=== PATIENT | female | born 1975 | race Caucasian/White ===

== ENCOUNTER 2017-01-12 17:03 | Emergency (ER) | payer OTHER ==
[~2017-01-12] VITALS: Ht 162.6 cm; Wt 50.0 kg
[~2017-01-12 17:03] MED LIST: COFF400C PO; FERR325T6 PO; HYOS0.1216 PO; IBUP400T22 PO
[2017-01-12 17:25] VITALS: BP 111/69; PULSE 94; RESP 18; O2SAT 98
--- NOTE | 2017-01-12 19:37 | ED.REPORT ---
HPI-Abd Pain F 2 and Over Date of Service Jan 12, 2017 ED Provider: Doc,Ed MD History of Present Illness: 41-year-old female here for flulike symptoms. She has been sick for 4 days. Diarrhea, cough that is nonproductive, ear pain, body aches, fatigue. She has been going to work and doing her normal activities. For instance today she for run this morning but felt terrible afterwards. Denies abdominal pain, nausea, UTI symptoms of shortness of breath or chest pain Nursing Notes Stated Complaint: FLU SYMPTOMS/HEADACHE/DIARRHEA Chief Complaint: FLU/Cold Symptoms Allergies: Coded Allergies: dicyclomine (Verified Allergy, Unknown, 03/26/16) zolpidem (Verified Allergy, Unknown, 03/26/16) Scheduled Coffee Extract (Green Coffee Anderson) 400 Mg Capsule 400 MG PO DAILY Ferrous Sulfate (Ferrous Sulfate) 325 Mg Tablet.dr 325 MG PO DAILY Scheduled PRN Ibuprofen (Ibuprofen) 400 Mg Tablet 400 MG PO QID PRN PRN For Pain Tramadol (Tramadol) 50 Mg Tablet 50 MG PO Q4H PRN PRN For Pain Miscellaneous Medications Hyoscyamine (Hyoscyamine) 0.125 Mg Tablet 0.125 MG PO General Time Seen by MD: 19:36 Chief Complaint Diarrhea mild Hx Obtained from: Patient Arrived by: Walk-in Sudden in Onset?: No Onset Occurred: 4 days ago Progression since onset: Intermittent Similar Sx Previous: No Past Medical History Smoking History Never Smoker Review of Systems Basic Review of Systems Eyes: Vision NL ENT: Hearing NL Neurologic: NL mental status, No weakness, No numbness Psychiatric: Normal thought content Constitutional: Reports: Chills, Decreased appetitie, Fever, Lethargy Respiratory: Reports: Non-productive cough Cardiovascular: Denies: Chest pain GI: Reports: Diarrhea, Denies: Abdominal pain, Nausea Female: Denies: Decreased urination, Dysuria Musculoskeletal: Denies: Back pain Complete sys rev & neg: except as marked. Physical Exam Initial Vital Signs Vital Signs (First) Date Time Temp Pulse Resp B/P Pulse Ox O2 Delivery O2 Flow Rate FiO2 01/12/17 17:25 38.9 94 18 111/69 98 Room Air Initial VS: Reviewed, Vital signs normal Head / Eyes: Atraumatic, Normocephalic, PERRL ENT: Mucous membranes moist, Conjunctiva normal Neck: Supple, Non-tender, Full range of motion Lymphatic: No lymphadenopathy Skin: Warm, Dry, No cyanosis Neurologic: Alert, Oriented, Nonfocal Psychiatric: Mood/affect normal, Behavior normal, Normal thought content General / Constitutional: Awake, Alert Respiratory / Chest: Atraumatic, Breath sounds NL, Breath sounds = bilat, No respiratory distress Cardiovascular: Heart rate NL, Regular rhythm, Heart sounds NL Abdomen: Atraumatic, Soft, Non-tender, No guarding, No rebound, BS normoactive Back: Atraumatic, Inspection NL no cva tenderness Head / Eyes: Atraumatic, Normocephalic, PERRL, EOMI ENT: Atraumatic, Airway patent, Mucous membranes moist, Pharynx NL, No peritonsillar abscess, No pooling of secretions, No trismus Left Ear / Mastoid: Positive: Ext canal cerumen impact (left) R TM normal. L side obscured with wax Interpretation & Diagnostics Interpretation & Diagnostics: flu test neg Re-Eval/Medical Decision Med Decision/Clinical Course Discussed supportive care for viral illness. Patient states ibuprofen and Tylenol do not work for her body aches like something stronger Patient's temp 39.3 upon discharge gave her antipyretics down to 38 prior to discharge. Instructed to continue antipyretics drink lots of fluids and rest Discharge & Departure Shift Change Sign-Out Laboratory Evaluation: Lab evaluation discussed Impression: Primary Impression: Viral illness Disposition: Home Discharge Condition All VS Reviewed: Yes Condition: Stable Patient Instructions: Acute Diarrhea (ED), Upper Respiratory Infection (ED) Additional Instructions: Treatment plan fluids, rest. Follow-up if worsening condition including fever greater than 102F, unable to tolerate oral fluids or any other concerns. Take ibuprofen and Tylenol for body aches tramadol for severe pain.follow up with your PCP this week if symptoms persist Referrals: Aisha Sanford DO (PCP) EDSupervising Provider for APC: Adam Donato Linnea K ARNP Jan 12, 2017 19:37
[2017-01-12] MEDS ORDERED: TRAM50TA2 PO (20:00)
[2017-01-12] MEDS ORDERED: Ketorolac 30 mg/mL 2 mL Inj IM ONE (20:00)
[2017-01-12 20:30] VITALS: BP 102/52; PULSE 92; RESP 20
== END 2017-01-12 20:56 | disposition home or self-care (01) ==
LOC: SED 17:03
DX: B34.9 Viral infection, unspecified (principal); H92.09 Otalgia, unspecified ear; Z88.8 Allergy status to other drugs, medicaments and biological substances
CPT/HCPCS: 87804; 96372; 99284; J1885

== ENCOUNTER 2017-05-13 14:19 | Emergency (ER) | payer OTHER ==
[~2017-05-13] VITALS: Ht 162.6 cm; Wt 50.9 kg
[~2017-05-13 14:19] MED LIST changes: +HYOS-22 PO; -HYOS0.1216 PO; +TRAM50TA2 PO
[2017-05-13 14:29] VITALS: BP 119/75; PULSE 71; RESP 16; O2SAT 97
--- NOTE | 2017-05-13 14:40 | ED.REPORT ---
HPI-General Illness Date of Service May 13, 2017 ED Provider: Demarcus Stephens MD Patient is a 41 year old female with a history of IBS who presents to the ED sent from due to a HGB of 5.9 She is severely microcytic at 52. She also complains of shortness of breath and feeling exhausted. The patient reports she has had bleeding from her rectum for over a year and had multiple colonoscopies with no definitive diagnoses. She states that she is not consistent with her iron pills. Rectal exam performed earlier today by the urgent care physician was reported to be positive for occult blood. Patient denies chest pain. She is adamant that she does not want to be hospitalized and she is reluctant to stay in the emergency department for transfusion. She has not previously been transfused by her report. Nursing Notes Stated Complaint: LOW BLOOD COUNT Chief Complaint: General Complaint Nursing Notes Reviewed: Yes Allergies: Coded Allergies: dicyclomine (Verified Allergy, Unknown, 05/13/17) zolpidem (Verified Allergy, Unknown, 05/13/17) Scheduled Coffee Extract (Green Coffee Anderson) 400 Mg Capsule 400 MG PO DAILY Ferrous Sulfate (Ferrous Sulfate) 325 Mg Tablet.dr 325 MG PO DAILY Scheduled PRN Ibuprofen (Ibuprofen) 400 Mg Tablet 400 MG PO QID PRN PRN For Pain Tramadol (Tramadol) 50 Mg Tablet 50 MG PO Q4H PRN PRN For Pain Miscellaneous Medications Hyoscyamine (Hyoscyamine) 0.125 Mg Tablet 0.125 MG PO General Time Seen by MD: 14:40 Chief Complaint Other Hx Obtained From: Patient Arrived By: Walk-in Sudden in Onset?: No Onset Occurred: More than a week ago... (>6 months) Recent Healthcare: No recent hospitalization, Recent doctor visit Similar Sx Previous: Yes Past Medical History Past Medical History IBS Past Surgical History None Smoking History Never Smoker Social History Alcohol Use: Denies alcohol use Drug Use: Denies drug use Ambulatory Status Independent Review of Systems rectal bleeding Full Review of Systems Constitutional: Reports: Fatigue, Denies: Chills, Fever Respiratory: Reports: Shortness of breath, Denies: Non-productive cough Skin: Denies Rash Complete sys rev & neg: except as marked. Physical Exam Vital Signs Vital Signs Date Time Temp Pulse Resp B/P Pulse Ox O2 Delivery O2 Flow Rate FiO2 05/13/17 18:42 37.3 57 16 124/79 97 05/13/17 18:22 37.3 60 16 115/62 100 05/13/17 16:49 36.7 61 16 126/84 99 05/13/17 14:29 36.8 71 16 119/75 97 Room Air Initial VS: Reviewed General/Constitutional: Awake, Alert Head / Eyes: Atraumatic, Normocephalic, PERRL, EOMI Respiratory / Chest: Atraumatic, Breath sounds NL, Breath sounds = bilat, No respiratory distress Cardiovascular: Heart rate NL, Regular rhythm, Heart sounds NL, No gallop, No murmurs, No rubs Skin: Atraumatic, Color NL, No rash, Warm, Dry Neurologic: Oriented X3, Speech NL, No motor deficits, No sensory deficits Psychiatric: Affect NL, Mood NL Interpretation & Diagnostics Lab Results Interpretation Test 05/13/17 15:33 Hold Purple Top Tube Received (Received) Hold Blue Top Tube Received (Received) Hold [place] Top Tube Received (Received) Re-Eval/Medical Decision Med Decision/Clinical Course 38-year-old female with long-standing iron deficiency anemia 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 Hemodynamically stable and not presently experiencing significant blood loss by her report but severely anemic. The patient is experiencing significant symptoms primarily fatigue and was agreeable to receiving blood transfusion. We transfused 2 units of packed red cells. She will follow up appointment in 2 days with her primary care service. Time of Eval: 18:15 Re-Evaluation/Progress Note: Discussed plan for discharge. Patient understands and agrees. All questions were addressed. Counseled Regarding: Diagnosis, Lab results, Need for follow-up, When/why to return to ED Discharge & Departure Primary Impression: Anemia Anemia type: iron deficiency Iron deficiency anemia type: chronic blood loss Qualified Code: D50.0 - Iron deficiency anemia secondary to blood loss ( chronic) Disposition: Home Discharge Condition All VS Reviewed: Yes Condition: Stable Additional Instructions: In the emergency department today we transfused 2 units of packed red cells due to severe anemia thought related to ongoing chronic GI blood loss. It is very important that you follow up with primary care in 2 days as scheduled. It is also very important that you take her iron as prescribed. Do not take ibuprofen or naproxen. Referrals: Aisha Sanford DO (PCP) Scribe Attestation Portions of this note were transcribed by Kelsey Nelson. I, Dr. Stephens personally performed the history, physical exam and medical decision-making; I reviewed and confirmed the accuracy of the information in the transcribed note. Signed by: Alexandra Washington, 05/13/17 and 1817 copies to: Aisha Sanford Donald L MD May 13, 2017 14:40 Agnieszka Nelson May 13, 2017 14:48
[2017-05-13 16:49] VITALS: BP 126/84; PULSE 61; RESP 16; O2SAT 99
[2017-05-13 18:22] VITALS: BP 115/62; PULSE 60; RESP 16; O2SAT 100
[2017-05-13 18:42] VITALS: BP 124/79; PULSE 57; RESP 16; O2SAT 97
[2017-05-13 19:45] VITALS: BP 126/55; PULSE 68; RESP 16; O2SAT 100
== END 2017-05-13 19:45 | disposition home or self-care (01) ==
LOC: SED 14:19
DX: D50.0 Iron deficiency anemia secondary to blood loss (chronic) (principal); Z88.8 Allergy status to other drugs, medicaments and biological substances
CPT/HCPCS: 36415; 36430; 81002; 81025; 82272; 86922; 99285; G0463; P9021

== ENCOUNTER → 2017-07-04 | Day surgery (SDC) | payer OTHER ==
[~2017-07-04] VITALS: Ht 162.6 cm; Wt 48.5 kg
[~2017-07-04] MED LIST changes: +0.9% Sodium Chloride 1,000 ML IV SCH; -COFF400C PO; -HYOS-22 PO; +LORA0.5T PO; +OMEP20CA11 PO; +SERT100T9 PO; +Sodium Chloride LOK Flush 10 mL Syringe IV PRN; +fentaNYL-PF 50 mCg/mL 2 mL Inj IVPUSH PRN
[2017-07-04 08:59] VITALS: BP 103/54; PULSE 47; RESP 14; O2SAT 99
[2017-07-04 09:53] VITALS: BP 110/68; PULSE 64; RESP 12; O2SAT 98
[2017-07-04 10:03] VITALS: BP 102/68; PULSE 55; RESP 16; O2SAT 99
[2017-07-04 10:13] VITALS: BP 99/69; PULSE 52; RESP 16; O2SAT 99
[2017-07-04 10:23] VITALS: BP 103/67; PULSE 46; RESP 16; O2SAT 99
[2017-07-04 10:33] VITALS: BP 125/81; PULSE 72; RESP 16; O2SAT 99
--- NOTE | 2017-07-04 13:40 | ENDO ---
[address] [address] ENDOSCOPY PROCEDURE PATIENT: MARIA E MADRID : 1975 MR#: [id number] ADMIT: 07/04/2017 JOB ID: [id number] DATE OF SERVICE: 07/04/2017 TYPE OF OPERATION: Esophagogastroduodenoscopy, biopsy, and colonoscopy. PREOPERATIVE DIAGNOSIS(ES): 1. Bloody diarrhea. 2. Anemia. POSTOPERATIVE DIAGNOSIS(ES): 1. A 3 mm antral ulcer, clean-based, nonbleeding. 2. Poor prep during colonoscopy. ANESTHESIA: Fentanyl 100 mcg, Versed 7 mg IV administered. COMPLICATION: None. BLOOD LOSS: Minimal. DESCRIPTION OF PROCEDURE: After risks and benefits explained to the patient, informed consent was obtained. After anesthesia administered, an upper endoscope was then inserted in mouth intubating to the esophagus, stomach, second portion of duodenum. Mucosa carefully examined. After the procedure done, scope withdrawn, procedure terminated. A colonoscope was then inserted from the rectum to the ascending colon. Mucosa carefully examined. Prep of the patient was suboptimal and poor. After procedure done, scope withdrawn, procedure terminated. FINDINGS: Upon inspection of esophagus, esophagus was normal without masses, ulcers, or lesions. Z-line located at 35 cm from incisors. Upon entering the stomach, there was a 3 mm, clean-based, nonbleeding ulcer at the antrum. There were no masses or lesions. No other masses were seen. Retroflexion was normal. Duodenal bulb, first and second portion normal. Biopsy of duodenum, antrum, body of stomach. Upon inspection of anus, no masses, hemorrhoids, ulcers, or fissures that were seen. Throughout the entire examination, the prep was extremely poor with poor visualization. Procedure was then aborted. IMPRESSIONS: 1. Poor prep. 2. A 3 mm gastric ulcer, antrum, clean-based, nonbleeding. RECOMMENDATIONS: 1. Omeprazole 40 mg by mouth twice a day. 2. Carafate 1 g by mouth . 3. Repeat colonoscopy with two-day prep. 4. Repeat upper endoscopy in about 2-3 months to document healing of the ulcer.
--- NOTE | 2017-07-08 11:48 | PATH ---
SURGICAL PATHOLOGY Attending Physician:Mundo St MD CASE STATUS: Signed Out PATIENT NAME: MARIA E MADRID PID: [id number] : 1975 DATE COLLECTED:07/04/2017 15:37 SPECIMEN: 1: Duodenum, Biopsy 2: Stomach, Antrum, Biopsy 3: Gastric, Biopsy CLINICAL HISTORY: 1). DUODENUM BIOPSIES 2). ANTRUM BIOPSIES 3). GASTRIC BODY BIOPSIES (RULE OUT H.PYLORI) FINAL DIAGNOSIS: 1. Duodenum, Biopsy: Duodenal mucosa with no diagnostic abnormality. Negative for active inflammation, features of sprue, dysplasia or malignancy. 2. Antrum, Biopsy: Gastric antral mucosa with features of reactive gastropathy. Helicobacter organisms not identified. Negative for intestinal metaplasia, dysplasia or malignancy. 3. Gastric Body, Biopsy: Gastric body mucosa with no diagnostic abnormality. Helicobacter organisms not identified. Negative for intestinal metaplasia, dysplasia or malignancy. ICD10: R10.9 GROSS DESCRIPTION: The specimens are received in formalin, labeled with the patient's name, and sublabeled as the following: (1) duodenum bx's; (2) antrum bx's; (3) gastric body bx's. (1) The specimen consists of multiple fragments of farfan glistening semitranslucent tissue (0.5 x 0.4 x 0.1 cm in aggregate). Section code: (1A) tissue. Specimen entirely submitted. (2) The specimen consists of multiple fragments of farfan glistening semitranslucent tissue (0.5 x 0.4 x 0.1 cm in aggregate). Section code: (2A) tissue. Specimen entirely submitted. (3) The specimen consists of multiple fragments of farfan glistening semitranslucent tissue (0.4 x 0.4 x 0.1 cm in aggregate). Section code: (3A) tissue. Specimen entirely submitted. 07/05/17 ICD-9 CODES: CPT CODES: 1: 71171 2: 81524 3: 72231 Electronically Signed Out Tono Cruz MD, Ph.D. [facility] Pathology [facility], [place] [address] Technical component performed at [facility], [facility] [address], [place], [address]
== END | disposition home or self-care (01) ==
LOC: END 00:10
PROVIDERS: ATTEND Internal Medicine Gastroenterology
DX: D50.9 Iron deficiency anemia, unspecified (principal); K25.9 Gastric ulcer, unspecified as acute or chronic, without hemorrhage or perforation; R19.7 Diarrhea, unspecified; Z53.8 Procedure and treatment not carried out for other reasons
CPT/HCPCS: 43239; 45378; 99153; G0500; J2250; J3010; J7030